=== PATIENT | female | born 2000 | race Two or more races ===

== ENCOUNTER 2020-08-06 00:12 | Emergency (ER) | payer MEDICAID ==
[~2020-08-06] VITALS: Ht 165.1 cm; Wt 174.2 kg
[2020-08-06 00:15] VITALS: BP 139/91
[2020-08-06] MEDS ORDERED: KETOROLAC TROMETH 60MG/2ML VIAL IM ONE (02:00)
== END 2020-08-06 02:12 | disposition home or self-care (01) ==
LOC: ER 00:12
DX: H66.92 Otitis media, unspecified, left ear (principal); J06.9 Acute upper respiratory infection, unspecified; Z88.0 Allergy status to penicillin
CPT/HCPCS: 81025; 96372; 99283; J1885

== ENCOUNTER 2020-09-24 21:55 | Emergency (ER) | payer MEDICAID ==
[~2020-09-24] VITALS: Ht 165.1 cm; Wt 172.4 kg
[2020-09-24] MEDS ORDERED: IOHEXOL 300 MG/ML 100ML BOTTLE IJ ONE (23:39)
[2020-09-25] MEDS ORDERED: methylPREDNISolone SOD SUCC 125 MG/2 ML VL IM ONE (01:45)
[2020-09-25] MEDS ORDERED: MORPHINE SULFATE INJECTION 2 MG/ML SYRG IM ONE (01:45)
[2020-09-25] MEDS ORDERED: ONDANSETRON ODT 4 MG TAB PO ONE (01:45)
[2020-09-25 04:07] VITALS: BP 145/99
== END 2020-09-25 03:12 | disposition home or self-care (01) ==
LOC: ER 21:55
DX: H66.93 Otitis media, unspecified, bilateral (principal); E66.9 Obesity, unspecified; Z68.44 Body mass index [BMI] 60.0-69.9, adult; Z88.0 Allergy status to penicillin
CPT/HCPCS: 96372; 99284; J2270; J2930; Q0162